=== PATIENT | male | born 1965 | race Hispanic/Latino ===

== ENCOUNTER 2025-07-31 06:02 | Day surgery (SDC) | payer OTHER ==
[2025-07-29 15:10] VITALS: BP 173/91; PULSE 66; RESP 18; TEMP 98.6
[2025-07-29 15:10] LABS: IMMATURE GRANULOCYTE ABSOLUTE 0.02 K/uL (0-1); NUCLEATED RED BLOOD CELLS 0.0 % (0.0-0.19); PLATELET COUNT (AUTO) 264 K/uL (130-400); RED BLOOD CELL COUNT(AUTO) 4.15 MIL/uL (4.50-6.20); RED CELL DISTRIBUTION WIDTH 13.0 % (11.0-15.5); WHITE BLOOD COUNT (AUTO) 7.9 K/uL (4.8-10.8)
[2025-07-29 15:14] LABS: CREATININE 0.7 mg/dL (0.5-1.3); GLOMERULAR FILTR. RATE CALC 106.0 mL/min (>90); GLUCOSE,RANDOM 165.0 mg/dL (70-105); SODIUM SERUM 142.0 mmol/L (136-145); UREA NITROGEN, BLOOD 12.0 mg/dL (7-18)
[2025-07-29 15:16] LABS: INR 1.03 (0.85-1.15)
--- NOTE | 2025-07-29 17:15 | EKG ---
[facility] Test Date: 2025-07-29 Test Time: 14:56:48 Pat Name: MIREILLE LEE Department: [facility] Room: [facility] Gender: M Spud Sorter: [id number] : 1965 Requested By: FARRAH MUNROE Order Number: [id number] Reading MD: Ken Kinney Measurements Intervals [place] Rate: 62 P: 9 MI: 180 QRS: 22 QRSD: 94 T: 37 QT: 391 QTc: 398 Interpretive Statements Sinus rhythm No previous ECG available for comparison Electronically Signed On 07-31-2025 06:52:22 CDT by Ken Kinney Please click the below link to view image of tracing.
[2025-07-31] VITALS (17 sets, daily range): BP systolic 137–183; BP diastolic 75–94; PULSE 73–84; RESP 14–18; TEMP 97.4–97.8
[~2025-07-31] VITALS: Ht 175.3 cm; Wt 85.1 kg
[~2025-07-31 06:02] MED LIST: ATOR10 PO; LISI30TA4 PO; METF-446 PO
[2025-07-31] MEDS ORDERED: 0.9%NACL 1000ML 1,000 ML IV ONE (06:16)
[2025-07-31] MEDS ORDERED: SUGAMMADEX SODIUM 200 MG/2 ML VIAL IV ONE (07:04)
[2025-07-31] MEDS ORDERED: LIDOCAINE PF 100MG/5ML (2%) SYRINGE 5ML ONE (07:09)
[2025-07-31] MEDS ORDERED: SUCCINYLCHOLINE CHLORIDE 20 MG/ML 10 ML VIAL ONE (07:10)
[2025-07-31] MEDS ORDERED: MIDAZOLAM HCL 1 MG/ML 2ML VIAL ONE (07:10)
[2025-07-31] MEDS ORDERED: INDOCYANINE GREEN 25 MG VIAL IJ ONE (07:40)
--- NOTE | 2025-07-31 10:07 | PN ---
GENERAL SURGERY PROGRESS NOTE Date/Time Patient Seen: [ 07/31/2025 at 10:00 a.m.] Problem List: [ ] Interval History: [Postop day 0. Pain tolerable with p.r.n. medication. ] Physical Examination: GENERAL: [No acute distress.] ABD: Incisions clean, dry and intact, Dermabond place Vital Signs (last 8hr) Date Time Temp Pulse Resp B/P (MAP) Pulse Ox O2 Delivery O2 Flow Rate FiO2 07/31/25 06:55 97.9 82 16 183/94 100 Room Air 21 Laboratory: [ ] Hematology Labs: Test 07/29/25 14:55 Range/Units White Blood Count 7.9 4.8-10.8 K/uL Red Blood Count 4.15 L 4.50-6.20 MIL/uL Hemoglobin 12.7 L 14.0-18.0 g/dL Hematocrit 39.0 L 42-54 % Mean Corpuscular Volume 94.0 79-99 fL Mean Corpuscular Hemoglobin 30.6 27.0-33.0 pg Mean Corpuscular Hemoglobin Concent 32.6 32.0-36.0 g/dL Red Cell Distribution Width 13.0 11.0-15.5 % Platelet Count 264 130-400 K/uL Mean Platelet Volume 9.1 7.5-10.5 fL Immature Granulocyte % (Auto) 0.3 0-1 % Neutrophils (%) (Auto) 66.6 40.0-77.0 % Lymphocytes (%) (Auto) 22.4 21.0-51.0 % Monocytes (%) (Auto) 8.3 3.0-13.0 % Eosinophils (%) (Auto) 2.0 0.0-8.0 % Basophils (%) (Auto) 0.4 0.0-5.0 % Neutrophils # (Auto) 5.3 1.8-7.7 K/uL Lymphocytes # (Auto) 1.8 1.0-4.8 K/uL Monocytes # (Auto) 0.7 0.1-1.0 K/uL Eosinophils # (Auto) 0.16 0.00-0.70 K/uL Basophils # (Auto) 0.03 0.00-0.20 K/uL Absolute Immature Granulocyte (auto 0.02 0-1 K/uL Nucleated Red Blood Cells 0.0 0.0-0.19 % Chemistry Labs: Test 07/31/25 06:19 07/29/25 14:55 Range/Units Whole Blood Glucose 160 H 70-110 MG/DL Sodium Level 142 136-145 mmol/L Potassium Level 3.8 3.5-5.1 mmol/L Chloride Level 105 101-111 mmol/L Carbon Dioxide Level 29 21-32 mmol/L Blood Urea Nitrogen 12 7-18 mg/dL Creatinine 0.7 0.5-1.3 mg/dL Glomerular Filtration Rate Calc 106 >90 mL/min Random Glucose 165 H 70-105 mg/dL Total Calcium 9.0 8.5-10.1 mg/dL Coagulation Labs: Test 07/29/25 14:55 Range/Units Prothrombin Time 10.9 9.6-11.6 SEC Prothromb Time International Ratio 1.03 0.85-1.15 Activated Partial Thromboplast Time 24.8 L 26.3-35.5 SEC Diagnostics / Radiology: [Copy/Paste Echos/Imaging Report here] Impression and Plan: [Plan is for discharge home in the next few hours as long as patient tolerating p.o., ambulatory and pain under control. Discussed with patient and family. They understand and agree. ] TONE MUNROE PAC Jul 31, 2025 10:07
--- NOTE | 2025-07-31 11:00 | NUR ---
RECOVERY-POST OP 4 INCISIONS TO LOWER ABDOMEN. DERMABOND TO 4 INCISIONS. NO REDNESS OR SWELLING. NO ACTIVE BLEEDING OR DRAINAGE. DRESSINGS INTACT AND SOFT TO TOUCH. PATIENT ABLE TO WIGGLE TOES.
--- NOTE | 2025-07-31 16:16 | OP ---
Operative Note: DATE OF PROCEDURE: 07/31/25 SURGEON: FARRAH MUNROE MD HAT FORMING MACHINE FEEDER: Bowen Munroe MD p.a. C ANESTHESIA: General and local ANESTHESIOLOGIST/EMPLOYMENT EVALUATOR/CASE MANAGER: [facility] [place] PREOPERATIVE DIAGNOSIS: Symptomatic cholelithiasis POSTOPERATIVE DIAGNOSIS: As above, chronic cholecystitis SYNOPSIS: Cholecystectomy with IC green assisted cholangiogram performed without immediate complication PROCEDURE: 1. Robotic assisted cholecystectomy with IC green assisted cholangiogram ESTIMATED BLOOD LOSS: Minimal, less than 30 cc INDICATIONS: As above DESCRIPTION OF PROCEDURE: After standard precautions and preparations were undertaken a Veress needle and optical trocar were used to enter the abdominal cavity. All other instruments were placed under direct vision. The robotic system was docked in the standard fashion. We began our dissection by taking down attachments between the omental fat and other nearby structures associated with the front facing gallbladder wall. These attachments were taken down and we lifted the fundus of the gallbladder cephalad and began dissecting around the infundibulum to identify moran structures. A critical view of safety was achieved by identifying a single cystic artery and a single cystic duct. There was some aberrant anatomy with the artery laying lateral to the duct relative to the patient's midline. The duct itself had several large crossing veins. Despite achieving a critical view of safety and identifying no other structures entering the infundibulum area of the gallbladder we utilized IC green for visualization of the biliary ductal system. We are able to trace the flow of bile from the hepatic radicals through the common hepatic duct and common bile duct and down into the duodenum. We could visualize the cystic duct joining the common bile duct without any sign of obstruction to flow. We felt comfortable this time clipping and dividing both structures. Monopolar cautery was used to separate attachments between the gallbladder and gallbladder fossa. We decompress the gallbladder in a controlled fashion to facilitate removal from the abdominal cavity. At the end of the case all instrument counts were verified as correct including needles and sponges. FARRAH MUNROE MD Jul 31, 2025 16:16
== END 2025-07-31 11:38 | disposition home or self-care (01) ==
LOC: DAH 06:02
PROVIDERS: ATTEND Surgery
DX: K80.00 Calculus of gallbladder with acute cholecystitis without obstruction (principal); I10 Essential (primary) hypertension; E78.00 Pure hypercholesterolemia, unspecified; E11.9 Type 2 diabetes mellitus without complications; Z79.01 Long term (current) use of anticoagulants; Z98.890 Other specified postprocedural states
CPT/HCPCS: 80048; 85025; 85610; 85730; 86850; 86900; 86901; 36415; 93005; 47563; 82948 ×2; 88304; A4223 ×2; A4600; A6260; J7030 ×2; A4215 ×2; J3010; J1100; J0330; J0665 ×2; J3490 ×4; J2003; J2250; J2704; J2405; J2270; J2543; J2371; J0690 ×2; A4930 ×2; A4213; A4222; A4221; A4216